=== PATIENT | female | born 1990 | race Caucasian/White ===

== ENCOUNTER 2018-12-02 23:43 | Emergency (ER) | payer BC, OTHER ==
[~2018-12-02] VITALS: Ht 182.9 cm; Wt 131.5 kg
--- NOTE | 2018-12-03 00:04 | ED Lower Extremity ---
General Chief Complaint: Lower Extremity Stated Complaint: LT CALF AND FOOT PAIN VERY SORE Source: patient, RN notes reviewed Exam Limitations: no limitations History of Present Illness Date Seen by Provider: Dec 03, 2018 Time Seen by Provider: 00:03 Initial Comments Patient presents c/ c/o persistent left calf pain x 3 weeks. No known injury, or trauma. Never had before. Affecting her ability to sleep. Was reading online and became concerned she may have a blood clot. No known fever. Onset: other (x 3 weeks) Pain/Injury Location: left leg Method of Injury: unknown Modifying Factors: Worse With Movement Allergies and Home Medications Allergies Coded Allergies: No Known Drug Allergies (Unverified , 12/03/18) Home Medications Cyclobenzaprine HCl 10 Mg Tablet, 10 MG PO Q8H PRN for leg cramping/pain Prescribed by: ARLETH CROWE on 12/03/18 0121 Meloxicam 7.5 Mg Tablet, 7.5 MG PO Q12H PRN for leg pain Prescribed by: ARLETH CROWE on 12/03/18 0121 Patient Home Medication List Home Medication List Reviewed: Yes Review of Systems Constitutional: see HPI : No Musculoskeletal: see HPI, other (left calf pain) All Other Systems Reviewed Negative Unless Noted: Yes (Negative excepted noted.) Past Mpztxmn-Fmssqf-Cezjjh Hx Patient Social History Recent Foreign Travel: No Contact w/Someone Who Travel: No Physical Exam Vital Signs Vital Signs - First Documented 12/03/18 00:04 Temp 98.9 Pulse 75 Resp 16 B/P (MAP) 167/81 (109) Pulse Ox 95 O2 Delivery Room Air Capillary Refill : Height, Weight, BMI Height: '" Weight: lbs. oz. kg; BMI Method: General Appearance: WD/WN, no apparent distress, obese Cardiovascular: regular rate, rhythm Respiratory: no respiratory distress Legs: left leg no evidence of injury, left leg pain Neurologic/Psychiatric: no motor/sensory deficits, alert, normal mood/affect, oriented x 3 Skin: warm/dry; No cyanosis, No cool, No ecchymosis, No mottled, No rash Progress/Results/Core Measures Results/Orders Lab Results Laboratory Tests Test 12/03/18 00:10 12/03/18 00:34 Range/Units White Blood Count 9.6 4.3-11.0 10^3/uL Red Blood Count 4.31 L 4.35-5.85 10^6/uL Hemoglobin 12.6 11.5-16.0 G/DL Hematocrit 39 35-52 % Mean Corpuscular Volume 90 80-99 FL Mean Corpuscular Hemoglobin 29 25-34 PG Mean Corpuscular Hemoglobin Concent 33 32-36 G/DL Red Cell Distribution Width 13.6 10.0-14.5 % Platelet Count 219 130-400 10^3/uL Mean Platelet Volume 11.1 H 7.4-10.4 FL Neutrophils (%) (Auto) 68 42-75 % Lymphocytes (%) (Auto) 25 12-44 % Monocytes (%) (Auto) 6 0-12 % Eosinophils (%) (Auto) 1 0-10 % Basophils (%) (Auto) 0 0-10 % Neutrophils # (Auto) 6.4 1.8-7.8 X 10^3 Lymphocytes # (Auto) 2.3 1.0-4.0 X 10^3 Monocytes # (Auto) 0.6 0.0-1.0 X 10^3 Eosinophils # (Auto) 0.1 0.0-0.3 10^3/uL Basophils # (Auto) 0.0 0.0-0.1 10^3/uL Sodium Level 141 135-145 MMOL/L Potassium Level 3.6 3.6-5.0 MMOL/L Chloride Level 103 98-107 MMOL/L Carbon Dioxide Level 24 21-32 MMOL/L Anion Gap 14 5-14 MMOL/L Blood Urea Nitrogen 12 7-18 MG/DL Creatinine 0.70 0.60-1.30 MG/DL Estimat Glomerular Filtration Rate > 60 BUN/Creatinine Ratio 17 Glucose Level 129 H 70-105 MG/DL Calcium Level 9.0 8.5-10.1 MG/DL Corrected Calcium 9.0 8.5-10.1 MG/DL Magnesium Level 2.0 1.8-2.4 MG/DL Total Bilirubin 0.3 0.1-1.0 MG/DL Aspartate Amino Transf (AST/SGOT) 14 5-34 U/L Alanine Aminotransferase (ALT/SGPT) 17 0-55 U/L Alkaline Phosphatase 93 40-136 U/L Total Protein 6.8 6.4-8.2 GM/DL Albumin 4.0 3.2-4.5 GM/DL Prothrombin Time 13.3 12.2-14.7 SEC INR Comment 1.0 0.8-1.4 Activated Partial Thromboplast Time 31 24-35 SEC D-Dimer 0.42 0.00-0.49 UG/ML My Orders Orders - ARLETH CROWE DO Cbc With Automated Diff (12/03/18 00:02) Comprehensive Metabolic Panel (12/03/18 00:02) Fibrin Degradation Products (12/03/18 00:02) Magnesium (12/03/18 00:02) Protime With Inr (12/03/18 00:02) Partial Thromboplastin Time (12/03/18 00:02) Cyclobenzaprine Tablet (Flexeril Tablet) (12/03/18 01:16) Dexamethasone Injection (Decadron Inject (12/03/18 01:30) Hydrocodone/Apap 7.5/325 Tab (Lortab 7. (12/03/18 01:30) Medications Given in ED Current Medications Medications Dose Ordered Sig/Nina Route Start Time Stop Time Status Last Admin Dose Admin Acetaminophen/ Hydrocodone Bitart 1 ea ONCE ONCE PO 12/03/18 01:30 12/03/18 01:31 DC 12/03/18 01:27 1 EA Dexamethasone Sodium Phosphate 15 mg ONCE ONCE IM 12/03/18 01:30 12/03/18 01:31 DC 12/03/18 01:26 15 MG Vital Signs/I&O 12/03/18 00:04 Temp 98.9 Pulse 75 Resp 16 B/P (MAP) 167/81 (109) Pulse Ox 95 O2 Delivery Room Air Progress Progress Note : Progress Note Nothing per lab, or PE supports a DVT, including a normal D-dimer. Departure Impression Primary Impression: Pain of left calf Disposition: HOME, SELF-CARE Condition: Stable Departure-Patient Inst. Decision time for Depature: 01:19 Referrals: [facility] Patient Instructions: Lower Extremity Muscle Strain Scripts Cyclobenzaprine HCl (Cyclobenzaprine HCl) 10 Mg Tablet 10 MG PO Q8H PRN for leg cramping/pain, #30 TAB 0 Refills Prov: ARLETH CROWE DO 12/03/18 Meloxicam (Mobic) 7.5 Mg Tablet 7.5 MG PO Q12H PRN for leg pain, #30 TAB 0 Refills Prov: ARLETH CROWE DO 12/03/18 ARLETH CROWE DO Dec 03, 2018 00:04
[2018-12-03 00:54] LABS: BASOPHILS % (AUTO) 0 % (0-10); EOSINOPHILS % (AUTO) 1 % (0-10); HEMATOCRIT 39 % (35-52); HEMOGLOBIN 12.6 G/DL (11.5-16.0); LYMPHOCYTES % (AUTO) 25 % (12-44); MEAN CORPUSCULAR HEMOGLOBIN 29 PG (25-34); MEAN CORPUSCULAR HGB CONC 33 G/DL (32-36); MEAN CORPUSCULAR VOLUME 90 FL (80-99); MEAN PLATELET VOLUME 11.1 FL (7.4-10.4); MONOCYTES % (AUTO) 6 % (0-12); NEUTROPHILS % (AUTO) 68 % (42-75); PLATELET COUNT 219 10^3/uL (130-400); RED CELL DISTRIBUTION WIDTH 13.6 % (10.0-14.5); WHITE BLOOD COUNT 9.6 10^3/uL (4.3-11.0)
[2018-12-03 00:55] LABS: EOSINOPHILS # (AUTO) 0.1 10^3/uL (0.0-0.3); LYMPHOCYTES # (AUTO) 2.3 X 10^3 (1.0-4.0); MONOCYTES # (AUTO) 0.6 X 10^3 (0.0-1.0); NEUTROPHILS # (AUTO) 6.4 X 10^3 (1.8-7.8); POTASSIUM 3.6 MMOL/L (3.6-5.0); SODIUM 141 MMOL/L (135-145)
[2018-12-03 00:56] LABS: ALANINE AMINOTRANSFERASE 17 U/L (0-55); ALKALINE PHOSPHATASE 93 U/L (40-136); BILIRUBIN,TOTAL 0.3 MG/DL (0.1-1.0); BUN/CREATININE RATIO 17; CARBON DIOXIDE 24 MMOL/L (21-32); CHLORIDE 103 MMOL/L (98-107); GFR ESTIMATED > 60; GLUCOSE 129 MG/DL (70-105); TOTAL PROTEIN 6.8 GM/DL (6.4-8.2)
[2018-12-03 01:08] LABS: FIBRIN DEGRADATION PRODUCTS 0.42 UG/ML (0.00-0.49); PROTHROMBIN TIME PATIENT 13.3 SEC (12.2-14.7)
[2018-12-03] MEDS ORDERED: CYCLOBENZAPRINE 10 MG (FLEXERIL) TAB PO STA (01:16)
[2018-12-03] MEDS ORDERED: CYCL10TA9 PO (01:21)
[2018-12-03] MEDS ORDERED: MELO-170 PO (01:21)
[2018-12-03] MEDS ORDERED: DEXAMETHASONE 10 MG/ML (DECADRON) 1 ML VIAL IM ONE (01:30)
[2018-12-03] MEDS ORDERED: HYDROcodone/APAP 7.5 MG/325 MG (LORTAB, LORCET PLUS) TABLET PO ONE (01:30)
[2018-12-03 01:39] VITALS: BP 167/81
== END 2018-12-03 01:41 | disposition home or self-care (01) ==
LOC: EDUNIT# 23:43 → ER FS 23:45
DX: M79.662 Pain in left lower leg (principal)
CPT/HCPCS: 36415; 80053; 83735; 85025; 85379; 85610; 85730

== ENCOUNTER → 2019-03-13 | Outpatient (CLI) | payer BC ==
[~2019-03-13] MED LIST: ALPR0.254 PO; CYCL10TA9 PO; MELO-170 PO
--- NOTE | 2019-03-13 10:31 | Diagnostic Imaging Report ---
Right knee at 1000 hours. INDICATION: Knee pain. 3 views were obtained. FINDINGS: There is no fracture, dislocation or acute bony abnormality evident. The knee joint is well maintained. The soft tissues are unremarkable. IMPRESSION: 1. There is no evidence for an acute bony abnormality. 2. If there is clinical concern regarding internal derangement, then MRI would be recommended for additional study. Dictated by: Dictated on workstation # [id number]
== END ==
LOC: RAD FS 09:53
PROVIDERS: ATTEND Nurse Practitioner Family
DX: S89.91XA Unspecified injury of right lower leg, initial encounter (principal); X58.XXXA Exposure to other specified factors, initial encounter
CPT/HCPCS: 73562

== ENCOUNTER 2019-03-14 21:30 | Emergency (ER) | payer BC ==
[~2019-03-14] VITALS: Ht 180.3 cm; Wt 138.8 kg
[~2019-03-14 21:30] MED LIST changes: -ALPR0.254 PO
--- NOTE | 2019-03-14 22:18 | ED General ---
General Chief Complaint: Lower Extremity Stated Complaint: ANXIETY SYMPTOMS,LEG PAIN Nursing Triage Note: PT. REPORTED SHE HAD A PANIC ATTACK WHILE DRIVING WHICH MADE HER DIZZY, SOB, AND FELT LIGHT HEADED AND FELT LIKE SHE WAS GOING TO PASS OUT. SHE REPORTED DRIVING AT A FAST RATE OF SPEED JUST TO GET TO THE ER. HER PANIC ATTACK WAS DO TO BEING AFRAID OF WHAT THE RESULTS OF HER TESTS THAT WERE DONE ON HER RIGHT LEG. SHE HAD AN ULTRA SOUND ON THE LEG A COUPLE OF DAYS AGO. SHE REPORTED SHE HAS PAIN IN HER LEG AND SHE HAS A TEAR IN THE MUSCLE OF HER LEG. SHE REPORTED SHE WAS INFORMED SHE HAS A HEMATOMA AND SHE LOOKED STUFF UP ON THE INTERNET AND BECAME VERY ANXIOUS ABOUT ALL THOSE BIG WORDS. Nursing Sepsis Screen: No Definite Risk Source of Information: Patient History of Present Illness Date Seen by Provider: Mar 14, 2019 Time Seen by Provider: 22:17 Initial Comments 28-year-old female presenting with complaints of a panic attack. She reports that she has had left leg pain since October when she was pulling a cooler up a hill. She felt a pop in her calf and has had pain since then. She has not been able to get the pain to go away and she finally had a provider that had looked at it and evaluated her symptoms. They found that she has a tear to her muscle in her leg as well as a hematoma. She has a referral to the orthopedic [address] [place] [address] providers to be evaluated and treated however she had looked on [employer] about the diagnosis and symptoms and had a lot of things going through her head about it tonight. She started to panic and worry about this more while she was driving tonight and it caused her to hyperventilate and become dizzy, short of breath, and lightheaded. She felt like she was going to pass out and have a heart attack because she was having so much chest pain. She felt numb all over. She has never had something like this happen before. It has improved since she got to the hospital. Allergies and Home Medications Allergies Coded Allergies: No Known Drug Allergies (Unverified , 12/03/18) Home Medications Alprazolam 0.25 Mg Tablet, 0.25 MG PO Q8H PRN for ANXIETY Prescribed by: JOHNNY CURTIS on 03/14/19 1070 Cyclobenzaprine HCl 10 Mg Tablet, 10 MG PO Q8H PRN for leg cramping/pain Prescribed by: ARLETH CROWE on 12/03/18120 Meloxicam 7.5 Mg Tablet, 7.5 MG PO Q12H PRN for leg pain Prescribed by: ARLETH CROWE on 12/03/18120 Patient Home Medication List Home Medication List Reviewed: Yes Review of Systems Review of Systems Constitutional: No chills, No fever EENTM: no symptoms reported Respiratory: short of breath Cardiovascular: chest pain (tightness and pressure while having the panic attack) Gastrointestinal: no symptoms reported Genitourinary: no symptoms reported Musculoskeletal: muscle pain (chronic left leg pain since October) Skin: no symptoms reported Psychiatric/Neurological: Anxiety Past Mijhjgv-Nzligp-Jomrtc Hx Past Med/Social Hx: Reviewed Nursing Past Med/Soc Hx Patient Social History Recent Foreign Travel: No Contact w/Someone Who Travel: No Recent Infectious Disease Expo: No Recent Hopitalizations: No Physical Abuse: No Sexual Abuse: No Mistreated: No Fear: No Seasonal Allergies Seasonal Allergies: No Past Medical History Surgeries: No Respiratory: No Cardiac: No Neurological: No Genitourinary: No Gastrointestinal: No Musculoskeletal: No Endocrine: No HEENT: No Cancer: No Psychosocial: Yes Sleep Difficulties, Anxiety Integumentary: No Blood Disorders: No Physical Exam Vital Signs Vital Signs - First Documented 03/14/19 21:35 Temp 36.9 Pulse 92 Resp 16 B/P (MAP) 154/86 (108) Pulse Ox 99 O2 Delivery Room Air Capillary Refill : Less Than 3 Seconds Height, Weight, BMI Height: 6'" Weight: 290lbs. oz. 131.812810lo; 42.00 BMI Method:Stated General Appearance: WD/WN, Anxious HEENT: PERRL/EOMI, Pharynx Normal Neck: Supple Respiratory: Chest Non Tender, Lungs Clear, Normal Breath Sounds, No Accessory Muscle Use, No Respiratory Distress Cardiovascular: Regular Rate, Rhythm, No Edema, No JVD, Normal Peripheral Pulses Gastrointestinal: Normal Bowel Sounds, No Pulsatile Mass, Non Tender, Soft Extremity: Normal Capillary Refill Neurologic/Psychiatric: Alert, Oriented x3, No Motor/Sensory Deficits Skin: Normal Color, Warm/Dry Progress/Results/Core Measures Suspected Sepsis Recent Fever Within 48 Hours: No Infection Criteria Present: None New/Unexplained Altered Menta: No Sepsis Screen: No Definite Risk SIRS Temperature: Pulse: 92 Respiratory Rate: 16 Blood Pressure 154 /86 Mean: 108 Results/Orders My Orders Orders - JOHNNY CURTIS MD Alprazolam Tablet (Xanax Tablet) (03/14/19 22:52) Vital Signs/I&O 03/14/19 03/14/19 21:35 23:10 Temp 36.9 36.9 Pulse 92 92 Resp 16 16 B/P (MAP) 154/86 (108) 154/86 (108) Pulse Ox 99 99 O2 Delivery Room Air Room Air Capillary Refill : Less Than 3 Seconds Blood Pressure Mean: 108 POS Progress Note : Progress Note Reassured patient and counseled on follow-up and return precautions. Counseled to try Xanax as well as reviewed some breathing and centering type exercises. Advised to try using some compression socks on her left leg. Departure Impression Primary Impression: Panic attack as reaction to stress Additional Impression: Gastrocnemius muscle tear Qualified Codes: S86.112D - Strain of other muscle(s) and tendon(s) of posterior muscle group at lower leg level, left leg, subsequent encounter Disposition: 01 HOME, SELF-CARE Condition: Stable Departure-Patient Inst. Decision time for Depature: 22:57 Referrals: NO,LOCAL PHYSICIAN (PCP) Primary Care Physician [facility] Patient Instructions: Anxiety, Adult (DC), How to Put On and Take Off Compression Stockings, Panic Disorder (DC) Add. Discharge Instructions: Follow up with Orthopedics for your leg. In the meantime take Ibuprofen if needed for the aching in your leg. Use com pression socks to help with the aching and pain in your leg. Try ice when you are out walking or active with your leg. Heat will help with your leg when you are home or able to rest and elevate your leg. For the anxiety using the Xanax (Alprazolam) when you feel the panic attack coming on will help calm you down. Check with clinic or counsellor for continued problems/concerns. All discharge instructions reviewed with patient and/or family. Voiced understanding. Scripts Alprazolam (Alprazolam) 0.25 Mg Tablet 0.25 MG PO Q8H PRN for ANXIETY for 5 Days, #15 TAB 0 Refills Prov: JOHNNY CURTIS MD 03/14/19 JOHNNY CURTIS MD Mar 14, 2019 22:17 POS
[2019-03-14] MEDS ORDERED: ALPRAZolam 0.25 MG (XANAX) TAB PO STA (22:52)
[2019-03-14 23:10] VITALS: BP 154/86
[2019-03-14] MEDS ORDERED: ALPR0.254 PO (23:10)
== END 2019-03-14 23:15 | disposition home or self-care (01) ==
LOC: EDUNIT# 21:30 → ER FS 21:32
DX: S86.112D Strain of other muscle(s) and tendon(s) of posterior muscle group at lower leg level, left leg, subsequent encounter (principal); F41.0 Panic disorder [episodic paroxysmal anxiety]; X50.1XXA Overexertion from prolonged static or awkward postures, initial encounter
CPT/HCPCS: 99283

== ENCOUNTER → 2019-04-28 | Outpatient (CLI) | payer BC ==
[~2019-04-28] MED LIST changes: +ALPR0.254 PO
[2019-04-29 14:28] VITALS: BP 142/73
--- NOTE | 2019-04-29 14:28 | Cardiology Stress Test Report ---
Stress Test Report Date of Procedure/Referring: Date of Procedure: Apr 28, 2019 PCP Sherita Dominguez Aprn Admitting Physician No,Local Physician Indications: Chest pressure Baseline Heart Rate: 65 Baseline Blood Pressure: Blood Pressure Systolic: 142 Blood Pressure Diastolic: 73 Baseline EKG: Baseline EKG: sinus rhythm Summary/Conclusion: Summary: In summary, the patient started exercising with a baseline heart rate, blood pressure and EKG mentioned above Patient was able to exercise for a total of 6.45 minutes on Ben protocol, 8.1 METs Maximum heart rate 187 bpm which is 97 percent of maximum predicted heart rate response. Maximum blood pressure 212/79 Stress EKG no EKG changes. Recovery EKG normal. Conclusion: 1. Average exercise capacity. 2. Hypertensive response to exercise. 3. No ST-T wave abnormalities noted with exercise. 4. Negative stress test for ischemia. Sreekanth JEAN MD Apr 29, 2019 14:28
== END ==
LOC: CARD 13:38
PROVIDERS: ATTEND Nurse Practitioner Family
DX: R07.89 Other chest pain (principal)
CPT/HCPCS: 93017

== ENCOUNTER → 2019-06-26 | Outpatient (CLI) | payer BC ==
--- NOTE | 2019-06-26 14:39 | Diagnostic Imaging Report ---
Indication: Constipation KUB 2:18 PM There is a large amount stool throughout the colon. Bowel gas pattern is normal. There are no pathologic masses or calcifications. IMPRESSION: Fecal stasis consistent with constipation. Dictated by: Dictated on workstation # [id number]
== END ==
LOC: RAD FS 14:06
PROVIDERS: ATTEND Nurse Practitioner
DX: K59.00 Constipation, unspecified (principal)
CPT/HCPCS: 74018

== ENCOUNTER 2021-03-04 10:54 | Outpatient (CLI) | payer BC ==
[~2021-03-04] VITALS: Ht 182.9 cm; Wt 127.3 kg
[2021-03-04 10:51] VITALS: BP 149/87
[~2021-03-04 10:54] MED LIST changes: +ALPR.25T PO; -ALPR0.254 PO
[2021-03-04] MEDS ORDERED: CASIRIVIMAB/IMDEVIMAB 1,200 MG in NS (IVPB) 250 ML IV ONE (11:00)
[2021-03-04] MEDS ORDERED: ONDANSETRON 4 MG/2 ML (SDV) Z0FRAN IV PRN (11:00)
[2021-03-04] MEDS ORDERED: diphenhydrAMINE 50 MG/ML INJ (BENADRYL) IV PRN (11:00)
[2021-03-04] MEDS ORDERED: EPINEPHrine INJECTION 1 MG/ML AMP IM PRN (11:00)
[2021-03-04] MEDS ORDERED: ACETAMINOPHEN 500 MG TAB (TYLENOL) PO PRN (11:00)
[2021-03-04 12:05] VITALS: BP 143/67
== END 2021-03-04 12:47 | disposition home or self-care (01) ==
LOC: INFUSION 10:54
PROVIDERS: ATTEND Nurse Practitioner Family
DX: U07.1 COVID-19 (principal)

== ENCOUNTER 2021-04-02 17:51 | Emergency (ER) | payer BC ==
[~2021-04-02] VITALS: Ht 182.8 cm; Wt 127.3 kg
[~2021-04-02 17:51] MED LIST changes: +CYCL10TA25 PO; -CYCL10TA9 PO
[2021-04-02] MEDS ORDERED: fentaNYL INJ 100 MCG/2 ML AMP IVP ONE ×2 (18:00→19:15)
[2021-04-02] MEDS ORDERED: ONDANSETRON 4 MG/2 ML (SDV) Z0FRAN IVP ONE (18:00)
[2021-04-02] MEDS ORDERED: KETOROLAC 30 MG/ML VIAL IVP ONE (18:00)
--- NOTE | 2021-04-02 18:04 | ED Abdominal Pain ---
General Chief Complaint: Abdominal/GI Problems Stated Complaint: UPPER ABD/BACK PAIN Source of Information: Patient Exam Limitations: No Limitations History of Present Illness Date Seen by Provider: Apr 02, 2021 Time Seen by Provider: 18:02 Initial Comments To ER by private vehicle with reports of sudden onset of severe epigastric abdo natalie pain associated with nausea and vomiting about 30 minutes prior to arrival. She had a similar episode several months ago lasting for about half a day. Was thought at the time that she had a stomach ulcer and was given PPI. Timing/Duration: 1/2 Hour Severity/Quality: Severe Location: Epigastric Radiation: No Radiation Activities at Onset: None Associated Symptoms: Nausea/Vomiting Allergies and Home Medications Allergies Coded Allergies: No Known Drug Allergies (Unverified , 03/04/21) Patient Home Medication List Home Medication List Reviewed: Yes ALPRAZolam (Xanax Tablet) 0.25 Mg Tablet, 0.25 MG PO Q8H PRN for ANXIETY Prescribed by: JOHNNY CURTIS on 03/14/192309 Cyclobenzaprine HCl (Cyclobenzaprine HCl) 10 Mg Tablet, 10 MG PO Q8H PRN for leg cramping/pain Prescribed by: ARLETH CROWE on 12/03/18 012 Hydrocodone/Acetaminophen (Hydrocodone-Acetamin 5-325 mg) 1 Each Tablet, 1 TAB PO Q4H PRN for PAIN-MODERATE (5-7) Prescribed by: SHA FARMER on 04/02/211939 Meloxicam (Mobic) 7.5 Mg Tablet, 7.5 MG PO Q12H PRN for leg pain Prescribed by: ARLETH CROWE on 12/03/18120 Ondansetron (Ondansetron Odt) 8 Mg Tab.rapdis, 8 MG PO Q6H PRN for NAUSE A/VOMITING Prescribed by: SHA FARMER on 04/02/21 193 Review of Systems Review of Systems Constitutional: see HPI EENTM: No Symptoms Reported Respiratory: No Symptoms Reported Cardiovascular: No Symptoms Reported Gastrointestinal: See HPI, Abdominal Pain, Nausea, Vomiting Genitourinary: No Symptoms Reported Musculoskeletal: no symptoms reported Skin: no symptoms reported Psychiatric/Neurological: No Symptoms Reported Endocrine: No Symptoms Reported Hematologic/Lymphatic: No Symptoms Reported Past Drjurvf-Dsstzd-Vuukws Hx Seasonal Allergies Seasonal Allergies: No Past Medical History Surgeries: No Respiratory: No Cardiac: No Neurological: No Genitourinary: No Gastrointestinal: No Musculoskeletal: No Endocrine: No HEENT: No Cancer: No Psychosocial: Yes Sleep Difficulties, Anxiety Integumentary: No Blood Disorders: No Physical Exam Vital Signs Vital Signs - First Documented 04/02/21 17:59 Temp 36.3 Pulse 91 Resp 20 B/P (MAP) 155/87 (109) Pulse Ox 100 Capillary Refill : Height/Weight/BMI Height: 6'" Weight: 290lbs. oz. 131.655256hq; 42.00 BMI Method:Stated General Appearance: moderate distress, obese (Alert and oriented very pleasant. She is diaphoretic and appears to be in quite a bit of pain. She is bent forward in a position of comfort) HEENT: PERRL/EOMI, normal ENT inspection Respiratory: no respiratory distress, no accessory muscle use Cardiovascular: regular rate, rhythm, no murmur Gastrointestinal: normal bowel sounds, soft, tenderness Extremities: normal range of motion, non-tender Neurologic/Psychiatric: alert, normal mood/affect, oriented x 3 Skin: normal color, warm/dry Progress/Results/Core Measures Results/Orders Lab Results Laboratory Tests Test 04/02/21 18:00 Range/Units White Blood Count 10.5 4.3-11.0 10^3/uL Red Blood Count 4.48 3.80-5.11 10^6/uL Hemoglobin 12.9 11.5-16.0 g/dL Hematocrit 40 35-52 % Mean Corpuscular Volume 89 80-99 fL Mean Corpuscular Hemoglobin 29 25-34 pg Mean Corpuscular Hemoglobin Concent 32 32-36 g/dL Red Cell Distribution Width 13.2 10.0-14.5 % Platelet Count 213 130-400 10^3/uL Mean Platelet Volume 10.7 9.0-12.2 fL Immature Granulocyte % (Auto) 0 % Neutrophils (%) (Auto) 62 42-75 % Lymphocytes (%) (Auto) 29 12-44 % Monocytes (%) (Auto) 8 0-12 % Eosinophils (%) (Auto) 1 0-10 % Basophils (%) (Auto) 0 0-10 % Neutrophils # (Auto) 6.5 1.8-7.8 10^3/uL Lymphocytes # (Auto) 3.0 1.0-4.0 10^3/uL Monocytes # (Auto) 0.8 0.0-1.0 10^3/uL Eosinophils # (Auto) 0.1 0.0-0.3 10^3/uL Basophils # (Auto) 0.0 0.0-0.1 10^3/uL Immature Granulocyte # (Auto) 0.0 0.0-0.1 10^3/uL Prothrombin Time 13.8 12.2-14.7 SEC INR Comment 1.0 0.8-1.4 Sodium Level 140 135-145 MMOL/L Potassium Level 3.8 3.6-5.0 MMOL/L Chloride Level 105 98-107 MMOL/L Carbon Dioxide Level 22 21-32 MMOL/L Anion Gap 13 5-14 MMOL/L Blood Urea Nitrogen 9 7-18 MG/DL Creatinine 0.79 0.60-1.30 MG/DL Estimat Glomerular Filtration Rate 85 BUN/Creatinine Ratio 11 Glucose Level 105 70-105 MG/DL Calcium Level 9.2 8.5-10.1 MG/DL Corrected Calcium 9.1 8.5-10.1 MG/DL Total Bilirubin 0.5 0.1-1.0 MG/DL Aspartate Amino Transf (AST/SGOT) 20 5-34 U/L Alanine Aminotransferase (ALT/SGPT) 22 0-55 U/L Alkaline Phosphatase 94 40-136 U/L Total Protein 7.3 6.4-8.2 GM/DL Albumin 4.1 3.2-4.5 GM/DL Lipase 14 8-78 U/L Serum Test, Qualitative NEGATIVE NEGATIVE My Orders Orders - SHA FARMER APRN Cbc With Automated Diff (04/02/21 18:00) Comprehensive Metabolic Panel (04/02/21 18:00) Lipase (04/02/21 18:00) Ed Iv/Invasive Line Start (04/02/21 18:00) Ct Abdomen/Pelvis W (04/02/21 18:00) Protime With Inr (04/02/21 18:00) Hcg,Qualitative Serum (04/02/21 18:00) Ketorolac Injection (Toradol Injection) (04/02/21 18:00) Fentanyl Inj (Sublimaze Injection) (04/02/21 18:00) Ondansetron Injection (Zofran Injectio (04/02/21 18:00) Iohexol Injection (Omnipaque 350 Mg/Ml 1 (04/02/21 18:30) Received Contrast (Hold Metformin- Contr (04/02/21 18:30) Sodium Chloride Flush (Catheter Flush Sy (04/02/21 18:30) Ns (Ivpb) (Sodium Chloride 0.9% Ivpb Bag (04/02/21 18:30) Fentanyl Inj (Sublimaze Injection) (04/02/21 19:15) Medications Given in ED Current Medications Medications Dose Ordered Sig/Nina Route Start Time Stop Time Status Last Admin Dose Admin Fentanyl Citrate 75 mcg ONCE ONCE IVP 04/02/21 18:00 04/02/21 18:03 DC 04/02/21 18:09 75 MCG Fentanyl Citrate 75 mcg ONCE ONCE IVP 04/02/21 19:15 04/02/21 19:16 DC 04/02/21 19:13 75 MCG Iohexol 100 ml ONCE ONCE IV 04/02/21 18:30 04/02/21 18:31 DC 04/02/21 18:49 100 ML Ketorolac Tromethamine 15 mg ONCE ONCE IVP 04/02/21 18:00 04/02/21 18:03 DC 04/02/21 18:08 15 MG Ondansetron HCl 8 mg ONCE ONCE IVP 04/02/21 18:00 04/02/21 18:03 DC 04/02/21 18:07 8 MG Sodium Chloride 10 ml NEEDED PRN IV 04/02/21 18:30 04/02/21 18:49 10 ML Sodium Chloride 100 ml ONCE ONCE IV 04/02/21 18:30 04/02/21 18:31 DC 04/02/21 18:49 80 ML Vital Signs/I&O 04/02/21 17:59 Temp 36.3 Pulse 91 Resp 20 B/P (MAP) 155/87 (109) Pulse Ox 100 Departure Communication (Admissions) 1948-she is now completely pain-free after 2 doses of 75 mcg of fentanyl and 15 mg of Toradol. I did speak with Dr. Ribera just to notify him that she will be following up with him next week. Labs are unremarkable, CT unremarkable. Impression Primary Impression: Biliary colic Additional Impression: Symptomatic cholelithiasis Disposition: 01 HOME, SELF-CARE Condition: Stable Departure-Patient Inst. Decision time for Depature: 19:05 Referrals: VAIBHAV RIBERA BRETT D DO KIDO, TAKAAKI MD NO,LOCAL PHYSICIAN (PCP) Primary Care Physician Patient Instructions: Gallstones (DC) Add. Discharge Instructions: 1. Low dairy product low fat low grease diet. Call a surgeon of your choosing on sunday for follow up. Return to ER for fevers, uncontrollable pain or vomiting , All discharge instructions reviewed with patient and/or family. Voiced understanding. Scripts Ondansetron (Ondansetron Odt) 8 Mg Tab.rapdis 8 MG PO Q6H PRN for NAUSEA/VOMITING, #10 TAB Prov: SHA FARMER APRN 04/02/21 Hydrocodone/Acetaminophen (Hydrocodone-Acetamin 5-325 mg) 1 Each Tablet 1 TAB PO Q4H PRN for PAIN-MODERATE (5-7), #14 TAB Prov: SHA FARMER APRN 04/02/21 Copy Copies To 1: VAIBHAV RIBERA PETER J APRN Apr 02, 2021 18:04
[2021-04-02 18:15] LABS: BASOPHILS % (AUTO) 0 % (0-10); EOSINOPHILS # (AUTO) 0.1 10^3/uL (0.0-0.3); EOSINOPHILS % (AUTO) 1 % (0-10); HEMATOCRIT 40 % (35-52); HEMOGLOBIN 12.9 g/dL (11.5-16.0); LYMPHOCYTES % (AUTO) 29 % (12-44); MEAN CORPUSCULAR HEMOGLOBIN 29 pg (25-34); MEAN CORPUSCULAR HGB CONC 32 g/dL (32-36); MEAN CORPUSCULAR VOLUME 89 fL (80-99); MEAN PLATELET VOLUME 10.7 fL (9.0-12.2); MONOCYTES # (AUTO) 0.8 10^3/uL (0.0-1.0); MONOCYTES % (AUTO) 8 % (0-12); NEUTROPHILS # (AUTO) 6.5 10^3/uL (1.8-7.8); NEUTROPHILS % (AUTO) 62 % (42-75); PLATELET COUNT 213 10^3/uL (130-400); WHITE BLOOD COUNT 10.5 10^3/uL (4.3-11.0)
[2021-04-02 18:25] LABS: ALBUMIN 4.1 GM/DL (3.2-4.5); POTASSIUM 3.8 MMOL/L (3.6-5.0)
[2021-04-02 18:26] LABS: CALCIUM 9.2 MG/DL (8.5-10.1)
[2021-04-02 18:27] LABS: PROTHROMBIN TIME PATIENT 13.8 SEC (12.2-14.7)
[2021-04-02 18:28] LABS: TOTAL PROTEIN 7.3 GM/DL (6.4-8.2)
[2021-04-02 18:29] LABS: BILIRUBIN,TOTAL 0.5 MG/DL (0.1-1.0)
[2021-04-02] MEDS ORDERED: CATHETER FLUSH 10 ML SYR IV PRN (18:30)
[2021-04-02] MEDS ORDERED: IOHEXOL 350 MG/ML 100 ML (OMNIPAQUE 350) VIAL IV ONE (18:30)
[2021-04-02] MEDS ORDERED: HOLD METFORMIN - RECEIVED CONTRAST 20 ML VIAL IV SCH (18:30)
[2021-04-02] MEDS ORDERED: NS 100 ML (IVPB) BAG IV ONE (18:30)
[2021-04-02 18:31] LABS: CREATININE SERUM 0.79 MG/DL (0.60-1.30)
--- NOTE | 2021-04-02 19:00 | Diagnostic Imaging Report ---
PROCEDURE: CT abdomen and pelvis with contrast. TECHNIQUE: Multiple contiguous axial images were obtained through the abdomen and pelvis after administration of intravenous contrast. Auto Exposure Controls were utilized during the CT exam to meet ALARA standards for radiation dose reduction. All CT scans use one or more of the following dose optimizing techniques: automated exposure control, MA and/or KvP adjustment based on patient size and exam type or iterative reconstruction. INDICATION: Upper abdominal pain. FINDINGS: There is mildly heterogeneous enhancement throughout the liver. Low density is seen in the periportal regions which may represent periportal edema or can be consequence of hepatitis. Multiple lucent stones are seen within the gallbladder lumen. There is no significant biliary ductal dilatation. No definite pancreatic, adrenal gland or splenic lesion is identified. There is no evidence of focal renal abnormality or hydronephrosis. No free fluid is seen within the abdomen or pelvis. Moderate colonic stool is noted there is no evidence of focal inflammation or organized fluid collection. IMPRESSION: Heterogeneous enhancement in the liver and low-density in the periportal regions may represent periportal edema and hepatitis is not excluded. Clinical correlation would be useful. Otherwise, no definite acute abnormality is seen within the abdomen or pelvis. There is cholelithiasis. Dictated by: Dictated on workstation # [id number]
[2021-04-02] MEDS ORDERED: ACHD5005 PO (19:39)
[2021-04-02] MEDS ORDERED: ONDA8TAB13 PO (19:39)
[2021-04-02] MEDS ORDERED: RX-ONDANSETRON 4 MG ODT (ZOFRAN) PPK #4 PO STA (19:53)
[2021-04-02 20:10] VITALS: BP 136/66
== END 2021-04-02 20:11 | disposition home or self-care (01) ==
LOC: EDUNIT# 17:51 → ER 17:53
DX: K80.50 Calculus of bile duct without cholangitis or cholecystitis without obstruction (principal); K80.20 Calculus of gallbladder without cholecystitis without obstruction; F41.9 Anxiety disorder, unspecified; E66.9 Obesity, unspecified; Z68.41 Body mass index [BMI] 40.0-44.9, adult; Z79.899 Other long term (current) drug therapy
CPT/HCPCS: 36415; 74177; 80053; 83690; 84703; 85025; 85610